=== PATIENT | female | born 1960 | race Caucasian/White ===

== ENCOUNTER 2025-06-28 19:07 | Emergency (ER) | payer BC ==
[2025-06-28] MEDS ORDERED: Lidocaine 1%/Epinephrine 1:100K 10 ML VIAL ONE (19:44)
[2025-06-28] MEDS ORDERED: Cephalexin 500 MG CAP ONE (21:07)
[2025-06-28] MEDS ORDERED: Bacitracin 1 PK ONE (21:07)
== END 2025-06-28 21:30 | disposition home or self-care (01) ==
LOC: MADERS 19:07
DX: S61.411A Laceration without foreign body of right hand, initial encounter (principal); S80.211A Abrasion, right knee, initial encounter; E11.9 Type 2 diabetes mellitus without complications; I10 Essential (primary) hypertension; Z79.4 Long term (current) use of insulin; Z79.899 Other long term (current) drug therapy; X58.XXXA Exposure to other specified factors, initial encounter
CPT/HCPCS: 12002; 99283